=== PATIENT | male | born 1965 | race Caucasian/White ===

== ENCOUNTER → 2019-06-04 | Day surgery (SDC) | payer OTHER ==
[~2019-06-04] MED LIST: ACETAMINOPHEN 325 MG TABLET PO PRN; ALBUTEROL SULFATE 2.5 MG/3 ML NEBU. NEB PRN; ASPI-630 PO; ATOR40TA PO; ATROPINE 0.5 MG/5 ML DISP.SYRIN. IV PRN; FLAX100031 PO; FLUT1DIS3 IH; HYDR-2145 PO; IV RINGERS SOLUTION,LACTATED 1,000 ML IV SCH; MULT-121 PO; OMEG1CAP50 PO; PHENOL ORAL SPRAY 177ML BOTTLE. MM PRN; PROPOFOL 40 ML IV ONE; TAMS0.4C97 PO; UBID10CA5 PO; diphenhydrAMINE 50 MG/ML VIAL IV PRN
[2019-06-04 14:45] VITALS: BP 131/86
--- NOTE | 2019-06-06 14:07 | PATHOLOGY ---
[facility] Accession Number: [id number] . 01 Material submitted: . colon - TRANSVERSE POLYP. Modifiers: transverse . 01 Clinical history: . None provided . 02 Diagnosis: Colon biopsy, transverse colon polyp: - Tubular adenoma. . ([facility]:mm; 06/06/2019) [facility] 06/06/2019 0929 Local . 02 Comment: There is no high grade dysplasia or evidence of malignancy. . ([facility]:mm; 06/06/2019) . 02 Electronically signed: . Freeman Banegas MD, Pathologist NPI- [id number] . 01 Gross description: . The specimen is received in formalin, labeled "Sergio Jorge, transverse polyp". Received is a segment of pale doe soft tissue measuring 0.4 cm in maximum dimensions. The specimen is submitted entirely in cassette A1. ([facility]; 06/05/2019) [facility]/QAC 06/05/2019 1801 Local . 02 Pathologist provided ICD-10: D12.3 . 02 CPT . 029366 Specimen Comment: A courtesy copy of this report has been sent to [phone] Specimen Comment: [phone] Specimen Comment: Report sent to / DR STAUFFER Performed at: 01 [facility] [address], [place], [place] [id number] MD Joo Isaacs MD Phone: [phone] Performed at: 02 [facility] [address] [place], [place] [id number] MD Freeman Banegas MD Phone: [phone]
== END ==
LOC: SURG 12:36
PROVIDERS: ATTEND Emergency Medicine
DX: Z12.11 Encounter for screening for malignant neoplasm of colon (principal); D12.3 Benign neoplasm of transverse colon; K57.30 Diverticulosis of large intestine without perforation or abscess without bleeding; I10 Essential (primary) hypertension; E78.00 Pure hypercholesterolemia, unspecified; J45.909 Unspecified asthma, uncomplicated; Z90.49 Acquired absence of other specified parts of digestive tract; Z98.890 Other specified postprocedural states; Z72.89 Other problems related to lifestyle
CPT/HCPCS: 45380; 88305; J2704; J7120